=== PATIENT | female | born 1980 | race Caucasian/White ===

== ENCOUNTER → 2016-10-31 | Outpatient (CLI) | payer OTHER ==
[~2016-10-31] MED LIST: MULT-506 PO
[2016-10-31 09:36] LABS: BASO % 0.3 %; BASO ABS # 0.02 K/uL (0-0.2); COMPLETE YES; EOS % 1.3 %; HEMATOCRIT 40.8 % (37-47); IG% 0.1 %; LYMPH % 21.3 %; LYMPH ABS # 1.53 K/uL (1.2-3.4); MEAN CELL VOLUME 90.3 fL (80-100); MEAN CORPUSCULAR HEMOGLOBIN 30.8 pg (25-34); MEAN CORPUSCULAR HGB CONC 34.1 g/dl (32-36); PLATELET COUNT 223 K/uL (130-400); RED BLOOD COUNT 4.52 M/uL (4.2-5.4); WHITE BLOOD COUNT 7.18 K/uL (4.8-10.8)
[2016-10-31 09:49] LABS: BLOOD UREA NITROGEN 13 mg/dl (7-18); GLUCOSE 102 mg/dl (70-99)
[2016-10-31 09:50] LABS: ALT/SGPT 30 U/L (12-78); AST/SGOT 17 U/L (15-37); BUN/CREATININE RATIO 14.1 (10-20); CALCIUM 8.6 mg/dl (8.5-10.1); CARBON DIOXIDE 29 mmol/L (21-32); CHLORIDE 107 mmol/L (98-107); POTASSIUM 4.2 mmol/L (3.5-5.1); SODIUM 139 mmol/L (136-145)
[2016-10-31 10:00] LABS: ALKALINE PHOSPHATASE 41 U/L (45-117); CHOLESTEROL 140 mg/dl (0-200); CHOLESTEROL/HDL RATIO 4.4; HDL CHOLESTEROL 32 mg/dl; LDL CHOLESTEROL CALCULATED 73 mg/dl; TRIGLYCERIDES 176 mg/dl (0-150); VERY LOW DENSITY LIPOPROT CALC 35 mg/dl
[2016-11-03 17:19] LABS: 18KDIGG BAND NONREACTIVE (NONREACTIVE); 23KDIGG BAND NONREACTIVE (NONREACTIVE); 23KDIGM BAND REACTIVE (NONREACTIVE); 28KDIGG BAND NONREACTIVE (NONREACTIVE); 30KDIGG BAND NONREACTIVE (NONREACTIVE); 39KDIGG BAND NONREACTIVE (NONREACTIVE); 39KDIGM BAND NONREACTIVE (NONREACTIVE); 41KDIGG BAND REACTIVE (NONREACTIVE); 41KDIGM BAND NONREACTIVE (NONREACTIVE); 45KDIGG BAND NONREACTIVE (NONREACTIVE); 58KDIGG BAND REACTIVE (NONREACTIVE); 66KDIGG BAND NONREACTIVE (NONREACTIVE); 93KDIGG BAND NONREACTIVE (NONREACTIVE)
== END | disposition home or self-care (01) ==
LOC: C.LAB 07:03
PROVIDERS: ATTEND Physician Assistant
DX: Z13.220 Encounter for screening for lipoid disorders (principal); R53.83 Other fatigue

== ENCOUNTER 2019-04-18 16:18 | Observation (INO) ==
[2019-04-18 16:55] LABS: Basophils # (auto) 0.03 K/uL (0-0.2); Basophils % (auto) 0.3 %; Eosinophils # (auto) 0.15 K/uL (0-0.5); Eosinophils % (auto) 1.5 %; Hematocrit (blood only) 41.9 % (37-47); Hemoglobin 14.2 g/dL (12.0-16.0); Immature Granulocytes # (auto) 0.04 K/uL (0.00-0.02); Immature Granulocytes % (auto) 0.4 %; Lymphocytes # (auto) 2.37 K/uL (1.2-3.4); Lymphocytes % (auto) 23.7 %; Mean Corpuscular Hemoglobin 30.3 pg (25-34); Mean Corpuscular Hgb Conc 33.9 g/dL (32-36); Mean Corpuscular Volume 89.5 fL (80-100); Mean Platelet Volume 10.2 fL (7.4-10.4); Monocytes # (auto) 0.71 K/uL (0.11-0.59); Monocytes % (auto) 7.1 %; Neutrophils # (auto) 6.68 K/uL (1.4-6.5); Platelet Count 195 K/uL (130-400); RDW Coefficient of Variation 12.6 % (11.5-14.5); RDW Standard Deviation 40.6 fL (36.4-46.3); Red Blood Count 4.68 M/uL (4.2-5.4); White Blood Count 9.98 K/uL (4.8-10.8)
[2019-04-18 17:16] LABS: Albumin Level 4.1 gm/dl (3.4-5.0); BUN Creatinine Ratio 15.9 (10-20); Calcium 9.3 mg/dl (8.5-10.1); Creatinine Clr Calc Pharmacy 105.2 ml/min; Est GFR (African American) 82.8; Est GFR (Non-African American) 71.4; Potassium 3.5 mmol/L (3.5-5.1)
[2019-04-18 17:19] LABS: Albumin Globulin Ratio 1.1 (0.9-2); Bilirubin,Total 0.3 mg/dl (0.2-1); Globulin 3.6 gm/dl (2.5-4.0); Total Protein 7.7 gm/dl (6.4-8.2)
--- NOTE | 2019-04-18 17:30 | Ultrasound Report ---
ULTRASOUND LEFT LOWER EXTREMITY VENOUS CLINICAL HISTORY: Left calf pain. COMPARISON STUDY: No priors. TECHNIQUE: Real-time, grayscale, and color Doppler sonography of the deep veins of the left lower ext remity was performed from the inguinal crease to the calf. Compression and augmentation were utilized . FINDINGS: There is occlusive deep venous thrombosis identified in the left popliteal vein. This exten ds into the calf within the posterior tibial and peroneal veins. The common femoral and superficial f emoral veins are patent and normally compressible. The greater saphenous vein and the profunda femori s vein at the junction with the common femoral vein are clear. IMPRESSION: There is occlusive deep venous thrombosis in the left popliteal vein extending into the c assisted as detailed above. ACT 112: Negative or not required by law. Electronically signed by: Mike Rudd M.D. 04/18/2019 5:28 PM
[2019-04-18 17:34] LABS: D Dimer 12000 ug/L FEU (0-500)
[2019-04-18] MEDS ORDERED: OPTIRAY 320 125ml IV PRN (18:08)
--- NOTE | 2019-04-18 18:19 | CT Scan Report ---
CT ANGIOGRAM OF THE CHEST CLINICAL HISTORY: Dyspnea. COMPARISON STUDY: No priors. TECHNIQUE: Following the IV administration of 119 cc of Optiray 320, CT angiogram of the chest was pe rformed from the upper abdomen to the thoracic inlet utilizing the pulmonary embolus protocol. Images are reviewed in the axial, sagittal, and coronal planes. 3-D MIPS images are created and assessed. I V contrast was administered without complication. A dose lowering technique was utilized adhering to the principles of ALARA. CT DOSE: 928.19 mGy.cm FINDINGS: Thyroid: Imaged portions of the thyroid gland are normal in size and attenuation. Thoracic aorta: The thoracic aorta is normal in caliber and demonstrates standard 3-vessel arch anato my. No dissection is seen. Pulmonary vasculature: The pulmonary trunk is normal in caliber. There are filling defects within the right middle and right lower lobe pulmonary arteries extending into segmental and subsegmental branc hes consistent with pulmonary emboli. Segmental and subsegmental pulmonary emboli are also seen withi n branches of the right upper lobe pulmonary artery. There are pulmonary emboli within the left upper and left lower lobe pulmonary arteries which also extend into segmental and subsegmental branches. Heart: The heart is normal in size and without pericardial effusion. Lungs and pleural spaces: The lungs and pleural spaces are clear. The trachea and central airways are patent. Mediastinum: There is no mediastinal lymphadenopathy. Johana: Clear. Axillae: There is no axillary lymphadenopathy. Upper abdomen: Cholecystectomy clips are noted. A 2.3 cm left adrenal nodule meets CT criteria for a fat-containing adenoma. Skeletal structures: No lytic or blastic bony lesions are seen. IMPRESSION: 1. Extensive bilateral pulmonary emboli as above. 2. The lungs are clear. ACT 112: Negative or not required by law. Electronically signed by: Mike Rudd M.D. 04/18/2019 6:18 PM
[2019-04-18] MEDS ORDERED: HEPARIN SODIUM/DEXTROSE 25,000 UNITS/500 ML BAG IV SCH (18:30)
[2019-04-18 18:41] LABS: Partial Thromboplastin Time 26.2 Seconds (21.0-31.0); Prothrombin Time 10.3 Seconds (9.0-12.0)
[2019-04-18] MEDS ORDERED: Heparin BOLUS **ED Use Only IV STA (18:50)
[2019-04-18] MEDS ORDERED: HEPARIN SOD 5,000 UNIT/0.5 ML VIAL ONE (19:02)
--- NOTE | 2019-04-18 19:04 | History & Physical Report ---
Date of Service April 18, 2019 Assessment & Plan (1) Bilateral pulmonary embolism: Admit to PCU on telemetry for unprovoked PE. and DVT. Vital signs every 4 hours. TTE pending. Started and continued heparin drip with bolus. Plan to stop heparin drip tomorrow and start apixaban 10 mg p.o. twice daily for 7 days and continue with 5 mg p.o. twice daily. Once when we receive the results of coagulation studies that were sent to the outside lab, we will be able to determine how long patient needs to stay stay on anticoagulation. We will consult hematology oncology to determine the duration of anticoagulation therapy. DVT prophylaxis heparin drip Full code Present on Admission?: Yes (2) Acute deep vein thrombosis (DVT) of left lower extremity: As the above Present on Admission?: Yes (3) Depression: Continue escitalopram 10 mg p.o. daily Present on Admission?: Yes (4) Hereditary benign telangiectasia: Stable. Patient periodically takes Icatibant. Present on Admission?: Yes (5) Morbid obesity: BMI of 51.6 kg/m . Patient advised to try to lose weight with weight loss program,exercises, and proper diet. Present on Admission?: Yes History of Present Illness Chief Complaint: Shortness of breath Primary Care Provider: Sandra Stahl PA-C The patient is a 38 years old female with past medical history of of hereditary telangiectasia, rosacea and depression who presents to the emergency room with a complaint of pain in her left calf for several weeks. Patient said that pain in her left lower extremity started first at the calf and then it was moving forward cover her thigh. It is located at the mid calf. Patient also noted shortness of breath for the past several weeks. Patient is otherwise healthy. Periodically she takes Icatibant for hereditary telangiectasia. Patient said that her mother had also DVT but that was contributed to her being post operatively. Patient denies recent long flight, smoking, oral contraceptive pills, prolonged sitting, or immobilization. Her only risk factor at this point is that she is overweight with BMI of 51.6 kg. Patient denies fever, chills, chest pain, abdominal pain, frequency, urgency, syncope or near syncope. Labs are reviewed: WBC is 9.98, hemoglobin 14.2, hematocrit 41.9, platelets 195, d- dimer 12,000, PT 10.3, INR 1, APTT 26.2, LA PTT pending, protein C pending, protein S activity pending, Antithrombin 3 activity pending, factor V Leiden mutant pending. Sodium 137, potassium 3.5, chloride 103, carbon dioxide 29, anion gap 5, BUN 16, creatinine 1, GFR 71.4, glucose 94, calcium 9.3, total bilirubin 0.3, AST 18, ALT 29, alkaline phosphatase 51, total protein 7.7, albumin 4.1, globulin 3.6, homocystine pending, TSH 3.55, beta-2 GPI immunoglobulins are pending IgG IgA and IgM, anticardiolipin IgG antibody IgA and IgM also pending. Been gene mutant pending. Venous Doppler shows: There is occlusive deep Raynaud's thrombosis in the left popliteal vein extended into the calf. CT angiogram chest shows extensive bilateral pulmonary emboli. Decision was made to admit patient to PCU on telemetry for further evaluation and treatment of extensive pulmonary embolism and left lower extremity DVT. Allergies Allergy/AdvReac Type Severity Reaction Status Date / Time Cephalosporins Allergy Unknown VOMITING/RA Verified 04/18/19 18:42 SH NSAIDS (Non-Steroidal Allergy DOES NOT Verified 04/18/19 18:42 Anti-Inflamma TAKE DUE TO BLOOD DISORDER cephalexin [From Keflex] AdvReac Severe PROJECTILE Verified 04/18/19 18:42 VOMITING codeine AdvReac Severe VOMITING/SO Verified 04/18/19 18:43 B Peanuts Allergy Unknown Uncoded 04/18/19 18:42 Home Medications Home Medications Medication Instructions Recorded Confirmed Type icatibant 30 mg/3 mL subcutaneous 30 mg SQ .COMPLEX 11/28/18 04/18/19 History syringe escitalopram oxalate 10 mg tablet 10 mg PO DAILY #30 tab 02/19/19 04/18/19 Rx acetaminophen [Tylenol Extra 1,000 mg PO Q6H PRN 04/18/19 04/18/19 History Strength] minocycline 100 mg PO BID PRN 04/18/19 04/18/19 History Past Med/Surg History Medical History Depression Hereditary angioedema Surgical History H/O knee surgery History of cholecystectomy History of tonsillectomy Family History Grandfather Asthma Hereditary angioedema Mother Hereditary angioedema Sister Hereditary angioedema Uncle Hereditary angioedema Social History Preferred Language: Polish Feels Safe at Home: Yes Smoking Status: Never smoker Review of Systems Review of Systems: All systems reviewed & are unremarkable except as noted in HPI & below Physical Exam Constitutional: WD/WN, vitals as above well developed and + morbidly obese Eyes: PERRL, conjunctivae normal, anicteric sclerae ENMT: external ear and nose normal, oropharynx normal Respiratory: normal respiratory effort Auscultation: + diminished lung sounds Cardiovascular: RRR, no murmur, no edema Gastrointestinal (Abdomen): normal bowel sounds, soft, nontender, no hepatosplenomegaly Musculoskeletal: no cyanosis or clubbing, extremities motor strength 5/5 Skin: no rashes, warm and dry Neurologic: patellar DTR's 2+ bilat, sensation intact Psychiatric: A+Ox3, euthymic affect Lymphatic: no cervical or axillary lymphadenopathy Results & Data Vital Signs (Past 12 Hours) Vital Signs Temp Pulse Resp BP Pulse Ox 04/18/19 18:01 64 20 98 04/18/19 18:00 65 15 153/88 H 99 04/18/19 17:49 71 20 99 04/18/19 17:32 73 18 138/84 99 04/18/19 16:21 36.9 C 88 18 162/88 H 100 Code Status & VTE Plan Code Status Full code VTE Prophylaxis Plan VTE Prophylaxis will be ordered: Yes PG Care Time/CCT Total # of Minutes Spent Total Time Spent with Patient: Total time spent is greater than 50% in coordination of care (as documented) at patient's floor/unit and/or counseling patient: Coding Level of Care Code 33485 Initial Inpt Care Lvl 3 Diagnoses Bilateral pulmonary embolism I26.99 Acute deep vein thrombosis (DVT) of left lower extremity I82.402 Affected thrombotic vein of extremity: unspecified vein of extremity Depression F32.9 Hereditary benign telangiectasia I78.0 Morbid obesity E66.01 (1) Acute deep vein thrombosis (DVT) of left lower extremity Affected thrombotic vein of extremity: unspecified vein of extremity Qualified Code(s): I82.402 - Acute embolism and thrombosis of unspecified deep veins of left lower extremity
[2019-04-18 19:32] LABS: Thyroid Stimulating Hormone 3.55 uIu/ml (0.300-4.500)
[2019-04-18] MEDS ORDERED: MAGNESIUM HYDROXIDE SUSP 30 ML UDC PO PRN (20:53)
[2019-04-18] MEDS ORDERED: POLYETHYLENE (MIRALAX) 17 GM PACK PO PRN (20:53)
[2019-04-18] MEDS ORDERED: ONDANSETRON INJ 2 MG/ML 2 ML VIAL IV PRN (20:53)
[2019-04-18] MEDS ORDERED: ACETAMINOPHEN 325 MG TAB PO PRN (20:53)
[2019-04-18] MEDS ORDERED: ALUMINUM/MAGNESIUM SUSP 30 ML UDC PO PRN (20:53)
[2019-04-18] MEDS: OXYCODONE/ACETAMINOPHEN 5mg/325mg TAB PO PRN (21:10)
--- NOTE | 2019-04-19 00:21 | Emergency Department Note ---
Entered by Nasreen Blanc acting as a scribe for ED Provider Note CHIEF COMPLAINT: right calf pain HISTORY OF PRESENT ILLNESS: The patient is a 38 year old female who presents to the Emergency Room with complaints of worsening right calf pain beginning one week ago. She states the pain is worse with exertion and worse in the morning after waking up. She notes the pain as a 5/10 while sitting, but much higher while moving around. She denies pain in her left calf. The patient reports shortness of breath with exertion and talking. She notes nausea this morning and night sweats. She denies chest discomfort with deep breaths. The patient denies a fall, injury, and pain in her foot, thigh, or hip. She denies similar symptoms previously. She denies long car or plane travel, heavy lifting, and sitting for extended periods.Pt den ies LOC, headache, fevers, chills, diaphoresis, visual changes, neck pain, chest pain, vomiting, abdominal pain, back pain, melena, hematochezia, urinary symptoms, numbness, weakness, lymphadenopathy, rash, or other complaints. The patient reports she is on Lexapro. REVIEW OF SYSTEMS: See HPI for pertinent positives and negatives. A total of ten systems were reviewed and were otherwise negative. PMHx/PSHx: Hereditary angioedema SOCIAL HISTORY: Patient lives at home. Patient denies smoking. She reports occasional drinking. FAMILY HISTORY: Blood clots (mother) PHYSICAL EXAM: GENERAL: Awake, alert, mildly uncomfortable-appearing, in no distress HENT: Normocephalic, atraumatic. Oropharynx unremarkable. EYES: PERRL. Normal conjunctiva. Sclera non-icteric. NECK: Inspection normal. Non-tender. Supple. No nuchal rigidity. FROM. No masses. RESPIRATORY: Clear to auscultation. No wheezes. No rales. Normal respiratory effort. CARDIAC: Normal rate. Normal rhythm. No murmurs. No rubs. Extremities warm and well perfused. Pulses equal. No JVD. GI: Soft, non-distended. No tenderness to palpation. No rebound or guarding. No masses. RECTAL: Deferred. MUSCULOSKELETAL: Atraumatic. Chest examination reveals no tenderness. The back is symmetrical on inspection without obvious abnormality. There is no CVA tenderness to palpation. No joint edema. LOWER EXTREMITIES: Calves are equal size bilaterally and non-tender. No edema. No discoloration. Left calf tenderness. NEURO: Normal sensorium. No sensory or motor deficits noted. SKIN: No rash or jaundice noted. EMERGENCY DEPARTMENT COURSE: 163: Past medical records reviewed. The patient was evaluated in room D03B, and a complete history and physical examination were performed. 1744: I updated the patient on my findings concerning her lab results. 1821: I updated the patient on my findings concerning her imaging. 1839: Upon reevaluation, I discussed findings and results with the patient. She verbalized agreement of the treatment plan. I spoke with Dr. Bahena of the [facility] Hospitalist Service. The patient will be evaluated for further management and care. CC: 35 min I have personally spent 35 minutes of critical care time in the direct management of this patient. This includes bedside care, interpretation of diagnostic studies, and testing, discussion with consultants, patient, and family members, and other required patient management activities. This 35 minutes is in excess of all separately billable procedures. MEDICAL DECISION MAKING: Triage Nursing notes reviewed and agree them. The patient's history was concerning for swelling and pain in the leg. Differential diagnosis: Etiologies such as DVT, joint effusion, infection, trauma, muscular, lymphedema, idiopathic, CHF, as well as others were entertained.. Physical examination: The physical examination revealed no signs of infection. Neurovascularly intact. ER treatment provided: IV heparin drip Cardiac monitoring On reassessment the patient felt better. Diagnostics interpreted by me: The labs revealed an unremarkable CBC and chemistry panel. Coags normal. The patient's d-dimer was markedly elevated. Imaging studies: Ultrasound imaging of the left leg was positive for occlusive DVT. CT imaging of the chest revealed bilateral pulmonary emboli. The patient has bilateral pulmonary emboli and a DVT. She was started on IV heparin. Hypercoagulability labs were ordered in order to help with the inpatient work-up. She will need further management in the hospital. Consultation: A consultation was placed with the hospitalist. The case was discussed and diagnostics were reviewed. The patient was evaluated in the ER for further treatment. IMPRESSION: bilateral pulmonary emboli, left leg DVT PLAN: Evaluated by Hospitalist The scribe's documentation has been prepared under my direction and personally reviewed by me in its entirety. I confirm that the note above accurately reflects all work, treatment, procedures, and medical decision making performed by me. Impression & Plan Bilateral pulmonary embolism, Acute deep vein thrombosis (DVT) of left lower extremity Past Med/Surg History Medical History Depression Hereditary angioedema Surgical History H/O knee surgery History of cholecystectomy History of tonsillectomy Family History Grandfather Asthma Hereditary angioedema Mother Hereditary angioedema Sister Hereditary angioedema Uncle Hereditary angioedema Social History Preferred Language: Trinidadian Communication Ability: Effective Features Reporter Required: No Beliefs That Will Affect Care: None Current Living Situation: Spouse Feels Safe at Home: Yes Smoking Status: Unknown if ever smoked Hx Alcohol Use: No Hx Substance Use: No Results & Data Vital Signs Vital Signs - 24 hr 04/18/19 16:21 04/18/19 17:32 04/18/19 17:49 Temperature 36.9 C Temperature Source Oral Pulse Rate 88 73 71 Pulse Rate from SpO2 Sensor 73 70 Respiratory Rate 18 18 20 Blood Pressure 162/88 H 138/84 Blood Pressure Mean 112 94 Pulse Oximetry 100 99 99 Oxygen Delivery Method Room Air Sepsis Recent Fever Within 48 Hours No Sepsis New/Unexplained Change in Mental Status No Sepsis Action Taken by Nursing No Action Required 04/18/19 18:00 04/18/19 18:01 04/18/19 18:30 Temperature Temperature Source Pulse Rate 65 64 Pulse Rate from SpO2 Sensor 66 65 71 Respiratory Rate 15 20 Blood Pressure 153/88 H 138/104 H Blood Pressure Mean 98 110 Pulse Oximetry 99 98 100 Oxygen Delivery Method Sepsis Recent Fever Within 48 Hours Sepsis New/Unexplained Change in Mental Status Sepsis Action Taken by Nursing 04/18/19 18:31 04/18/19 19:00 Temperature Temperature Source Pulse Rate Pulse Rate from SpO2 Sensor 73 Respiratory Rate Blood Pressure 137/81 Blood Pressure Mean 103 Pulse Oximetry 99 Oxygen Delivery Method Sepsis Recent Fever Within 48 Hours Sepsis New/Unexplained Change in Mental Status Sepsis Action Taken by Jail Medications Current Medication List: was personally reviewed by me Laboratory Data Attestation: I reviewed the patient's lab results. Result diagrams: 04/18/19 16:47 04/18/19 16:47 Lab Results 04/18/19 04/18/19 04/18/19 Range/Units 16:47 16:47 16:47 WBC 9.98 (4.8-10.8) K/uL RBC 4.68 (4.2-5.4) M/uL Hgb 14.2 (12.0-16.0) g/dL Hct 41.9 (37-47) % MCV 89.5 (80-100) fL MCH 30.3 (25-34) pg MCHC 33.9 (32-36) g/dL RDW Std Deviation 40.6 (36.4-46.3) fL RDW Coeff of Jose 12.6 (11.5-14.5) % Plt Count 195 (130-400) K/uL MPV 10.2 (7.4-10.4) fL Immature Gran % (Auto) 0.4 % Neut % (Auto) 67.0 % Lymph % (Auto) 23.7 % Gage % (Auto) 7.1 % Eos % (Auto) 1.5 % Baso % (Auto) 0.3 % Immature Gran # (Auto) 0.04 H (0.00-0.02) K/uL Neut # (Auto) 6.68 H (1.4-6.5) K/uL Lymph # (Auto) 2.37 (1.2-3.4) K/uL Gage # (Auto) 0.71 H (0.11-0.59) K/uL Eos # (Auto) 0.15 (0-0.5) K/uL Baso # (Auto) 0.03 (0-0.2) K/uL PT (9.0-12.0) Seconds INR (0.9-1.1) APTT (21.0-31.0) Seconds PTT Ratio D-Dimer 12627 H* (0-500) ug/L FEU Sodium 137 (136-145) mmol/L Potassium 3.5 (3.5-5.1) mmol/L Chloride 103 (98-107) mmol/L Carbon Dioxide 29 (21-32) mmol/L Anion Gap 5.0 (3-11) BUN 16 (7-18) mg/dl Creatinine 1.00 (0.6-1.2) mg/dl Est Cr Clr Drug Dosing 105.2 ml/min Est GFR ( Amer) 82.8 Est GFR (Non-Af Amer) 71.4 BUN/Creatinine Ratio 15.9 (10-20) Glucose 94 (70-99) mg/dl Calcium 9.3 (8.5-10.1) mg/dl Total Bilirubin 0.3 (0.2-1) mg/dl AST 18 (15-37) U/L ALT 29 (12-78) U/L Alkaline Phosphatase 51 (45-117) U/L Total Protein 7.7 (6.4-8.2) gm/dl Albumin 4.1 (3.4-5.0) gm/dl Globulin 3.6 (2.5-4.0) gm/dl Albumin/Globulin Ratio 1.1 (0.9-2) TSH 3.550 (0.300-4.500) uIu/ml 04/18/19 Range/Units 16:47 WBC (4.8-10.8) K/uL RBC (4.2-5.4) M/uL Hgb (12.0-16.0) g/dL Hct (37-47) % MCV (80-100) fL MCH (25-34) pg MCHC (32-36) g/dL RDW Std Deviation (36.4-46.3) fL RDW Coeff of Jose (11.5-14.5) % Plt Count (130-400) K/uL MPV (7.4-10.4) fL Immature Gran % (Auto) % Neut % (Auto) % Lymph % (Auto) % Gage % (Auto) % Eos % (Auto) % Baso % (Auto) % Immature Gran # (Auto) (0.00-0.02) K/uL Neut # (Auto) (1.4-6.5) K/uL Lymph # (Auto) (1.2-3.4) K/uL Gage # (Auto) (0.11-0.59) K/uL Eos # (Auto) (0-0.5) K/uL Baso # (Auto) (0-0.2) K/uL PT 10.3 (9.0-12.0) Seconds INR 1.0 (0.9-1.1) APTT 26.2 (21.0-31.0) Seconds PTT Ratio 1.0 D-Dimer (0-500) ug/L FEU Sodium (136-145) mmol/L Potassium (3.5-5.1) mmol/L Chloride (98-107) mmol/L Carbon Dioxide (21-32) mmol/L Anion Gap (3-11) BUN (7-18) mg/dl Creatinine (0.6-1.2) mg/dl Est Cr Clr Drug Dosing ml/min Est GFR ( Amer) Est GFR (Non-Af Amer) BUN/Creatinine Ratio (10-20) Glucose (70-99) mg/dl Calcium (8.5-10.1) mg/dl Total Bilirubin (0.2-1) mg/dl AST (15-37) U/L ALT (12-78) U/L Alkaline Phosphatase (45-117) U/L Total Protein (6.4-8.2) gm/dl Albumin (3.4-5.0) gm/dl Globulin (2.5-4.0) gm/dl Albumin/Globulin Ratio (0.9-2) TSH (0.300-4.500) uIu/ml Administered Medications Heparin Sodium/Dextrose (Heparin Sodium/Dextrose) 25,000 units in 500 mls @ 31 mls/hr IV .[id number] [facility]; Protocol Stop: 05/18/19 18:29 Last Admin: 04/18/19 19:08 Dose: 1,550 units/hr, 31 mls/hr Documented by: [id number] Cosigned by: [id number] Oxycodone/Acetaminophen (Percocet 5mg/325mg) 1 tab PO Q4H PRN PRN Reason: Pain Stop: 05/02/19 20:52 Last Admin: 04/18/19 21:10 Dose: 1 tab Documented by: [id number] Discontinued Medications Heparin Sodium (Porcine) (Heparin Iv Bolus) 7,000 units IV NOW STA Stop: 04/18/19 18:51 Last Admin: 04/18/19 19:09 Dose: Not Given Documented by: [id number] Heparin Sodium (Porcine) (Heparin Sodium (Porcine)) Confirm Administered Dose 5,000 units .ROUTE .STK-MED ONE Stop: 04/18/19 19:03 Last Admin: 04/18/19 19:08 Dose: 5,000 units Documented by: [id number] Cosigned by: [id number] Heparin Sodium/Dextrose () 1 ea N/A NOW STA; Protocol Stop: 04/18/19 18:21 Last Admin: 04/18/19 19:09 Dose: Not Given Documented by: [id number] Ioversol (Optiray 320 125ml) 119 ml IV ONCE PRN PRN Reason: Interaction Checking Stop: 04/22/19 18:07 Last Admin: 04/18/19 18:08 Dose: 119 ml Documented by: [id number] Imaging Data Radiologist's Impression: Radiology results as stated below per my review and the radiologist's interpretation: ULTRASOUND LEFT LOWER EXTREMITY VENOUS CLINICAL HISTORY: Left calf pain. COMPARISON STUDY: No priors. TECHNIQUE: Real-time, grayscale, and color Doppler sonography of the deep veins of the left lower extremity was performed from the inguinal crease to the calf. Compression and augmentation were utilized. FINDINGS: There is occlusive deep venous thrombosis identified in the left popliteal vein. This extends into the calf within the posterior tibial and peroneal veins. The common femoral and superficial femoral veins are patent and normally compressible. The greater saphenous vein and the profunda femoris vein at the junction with the common femoral vein are clear. IMPRESSION: There is occlusive deep venous thrombosis in the left popliteal vein extending into the calf as detailed above. ACT 112: Negative or not required by law. Electronically signed by: Mike Rudd M.D. 04/18/2019 5:[address] ANGIOGRAM OF THE CHEST CLINICAL HISTORY: Dyspnea. COMPARISON STUDY: No priors. TECHNIQUE: Following the IV administration of 119 cc of Optiray 320, CT angiogram of the chest was performed from the upper abdomen to the thoracic inlet utilizing the pulmonary embolus protocol. Images are reviewed in the axial, sagittal, and coronal planes. 3-D MIPS images are created and assessed. IV contrast was administered without complication. A dose lowering technique was utilized adhering to the principles of ALARA. CT DOSE: 928.19 mGy.cm FINDINGS: Thyroid: Imaged portions of the thyroid gland are normal in size and attenuation. Thoracic aorta: The thoracic aorta is normal in caliber and demonstrates standard 3-vessel arch anatomy. No dissection is seen. Pulmonary vasculature: The pulmonary trunk is normal in caliber. There are filling defects within the right middle and right lower lobe pulmonary arteries extending into segmental and subsegmental branches consistent with pulmonary emboli. Segmental and subsegmental pulmonary emboli are also seen within branches of the right upper lobe pulmonary artery. There are pulmonary emboli w ithin the left upper and left lower lobe pulmonary arteries which also extend into segmental and subsegmental branches. Heart: The heart is normal in size and without pericardial effusion. Lungs and pleural spaces: The lungs and pleural spaces are clear. The trachea and central airways are patent. Mediastinum: There is no mediastinal lymphadenopathy. Johana: Clear. Axillae: There is no axillary lymphadenopathy. Upper abdomen: Cholecystectomy clips are noted. A 2.3 cm left adrenal nodule meets CT criteria for a fat-containing adenoma. Skeletal structures: No lytic or blastic bony lesions are seen. IMPRESSION: 1. Extensive bilateral pulmonary emboli as above. 2. The lungs are clear. ACT 112: Negative or not required by law. Electronically signed by: Mike Rudd M.D. 04/18/2019 6:18 PM Blood Pressure Blood Pressure Findings: Elevated blood pressure Blood Pressure Disposition: further management by hospitalist Discharge Plan Visit Data *Final* Discharge Date/Time: 04/18/19 20:27 Chief Complaint: Calf Pain Stated Complaint: EXTREME LEFT CLAF PAIN ED Provider: Srinivasa Arzate Discharge Problem: Bilateral pulmonary embolism, Acute deep vein thrombosis (DVT) of left lower extremity Patient Disposition: Admitted As Inpatient Discharge Instructions Interventions: ED Discharge Assessment Last Done: 04/18/19 20:27 Discharge Problem: Acute deep vein thrombosis (DVT) of left lower extremity Qualifiers: Affected thrombotic vein of extremity: unspecified vein of extremity Qualified Code(s): I82.402 - Acute embolism and thrombosis of unspecified deep veins of left lower extremity The scribe's documentation has been prepared under my direction and personally reviewed by me in its entirety. I confirm that the note above accurately reflects all work, treatment, procedures, and medical decision making performed by me.
[2019-04-19 01:19] LABS: Basophils # (auto) 0.04 K/uL (0-0.2); Basophils % (auto) 0.4 %; Eosinophils # (auto) 0.26 K/uL (0-0.5); Eosinophils % (auto) 2.9 %; Hemoglobin 12.7 g/dL (12.0-16.0); Immature Granulocytes # (auto) 0.04 K/uL (0.00-0.02); Immature Granulocytes % (auto) 0.4 %; Lymphocytes # (auto) 2.75 K/uL (1.2-3.4); Lymphocytes % (auto) 30.5 %; Mean Corpuscular Hemoglobin 30.7 pg (25-34); Mean Corpuscular Hgb Conc 34.3 g/dL (32-36); Mean Corpuscular Volume 89.4 fL (80-100); Mean Platelet Volume 10.8 fL (7.4-10.4); Monocytes % (auto) 8.9 %; Neutrophils # (auto) 5.13 K/uL (1.4-6.5); Neutrophils % (auto) 56.9 %; Platelet Count 178 K/uL (130-400); RDW Coefficient of Variation 12.6 % (11.5-14.5); RDW Standard Deviation 40.4 fL (36.4-46.3); Red Blood Count 4.14 M/uL (4.2-5.4); White Blood Count 9.02 K/uL (4.8-10.8)
[2019-04-19 01:43] LABS: Albumin Level 3.1 gm/dl (3.4-5.0); BUN Creatinine Ratio 16.5 (10-20); Calcium 8.3 mg/dl (8.5-10.1); Creatinine Clr Calc Pharmacy 112.4 ml/min; Est GFR (African American) 90.4; Potassium 3.7 mmol/L (3.5-5.1)
[2019-04-19 01:46] LABS: Albumin Globulin Ratio 0.9 (0.9-2); Bilirubin,Total 0.3 mg/dl (0.2-1); Globulin 3.4 gm/dl (2.5-4.0); Total Protein 6.5 gm/dl (6.4-8.2)
[2019-04-19 01:47] LABS: Partial Thromboplastin Ratio 1.9; Prothrombin Time 10.6 Seconds (9.0-12.0)
[2019-04-19 02:01] LABS: Partial Thromboplastin Time 50.5 Seconds (21.0-31.0)
[2019-04-19] MEDS: OXYCODONE/ACETAMINOPHEN 5mg/325mg TAB PO PRN (03:44)
[2019-04-19 06:21] LABS: Estimated Average Glucose 111 mg/dl; Hemoglobin A1C 5.5 % (4.5-5.6)
[2019-04-19] MEDS ORDERED: PERFLUTREN LIPID MICROSPHERE (DEFINITY) IV ONE (06:59)
[2019-04-19] MEDS ORDERED: ESCITALOPRAM OXALATE 10 MG TAB PO SCH (09:00)
[2019-04-19] MEDS ORDERED: APIXABAN 5 MG TABLET PO SCH (09:00)
[2019-04-19] MEDS ORDERED: IOVERSOL 100ml IV PRN (12:39)
--- NOTE | 2019-04-19 12:51 | CT Scan Report ---
ABDOMEN AND PELVIS CT WITH IV AND ORAL CONTRAST CT DOSE: 1704.62 mGy.cm HISTORY: Acute generalized abdominal pain with pulmonary emboli pe, constitutional symptoms TECHNIQUE: Multiaxial CT images of the abdomen and pelvis were performed following the IV administrat ion of 94 cc of Optiray 320 and oral contrast. A dose lowering technique was utilized adhering to e principles of ALARA. COMPARISON STUDY: CTA of the chest 04/18/2019, right upper quadrant abdominal ultrasound 09/04/2009 FINDINGS: Clear lung bases. Pulmonary emboli redemonstrated. No pneumatosis or pneumoperitoneum. Imaged inferio r cardiac chambers appear unremarkable. Spleen, pancreas, liver and right adrenal gland are unremarka ble. 2.3 x 1.8 cm lesion of the left adrenal gland with soft tissue density is nonspecific. Cholecyst ectomy. No significant biliary ductal dilation identified. The kidneys and ureters are unremarkable. Partial distention of the urinary bladder. Uterus and adnexa are unremarkable. Aorta and IVC are with in normal limits. There is no adenopathy. There is mild nonspecific wall thickening of the gastric antrum/pylorus which may be secondary to par tial distention. There is no bowel obstruction or bowel wall thickening identified. No ascites or mes enteric inflammation. Terminal ileum is unremarkable. The appendix is not definitively seen. No secon mary signs of acute appendicitis. No ascites or mesenteric inflammation. Soft tissues are unremarkabl e. Spondylitic spurring and facet arthrosis of the spine. Degenerative changes of the SI joints. Post erior disc osteophyte complex formation with mild disc space narrowing at L5-S1. IMPRESSION: 1. No acute intra-abdominal or intrapelvic abnormality identified. 2. No bowel obstruction or bowel wall thickening. 3. Cholecystectomy. 4. Bibasilar pulmonary emboli redemonstrated. ACT 112: Negative or not required by law. The above report was generated using voice recognition software. It may contain grammatical, syntax o r spelling errors. Electronically signed by: Joey Galvan M.D. 04/19/2019 12:49 PM
--- NOTE | 2019-04-19 16:14 | Discharge Summary ---
Date of Service April 19, 2019 Admission HPI Per Admitting Provider The patient is a 38 years old female with past medical history of of hereditary telangiectasia, rosacea and depression who presents to the emergency room with a complaint of pain in her left calf for several weeks. Patient said that pain in her left lower extremity started first at the calf and then it was moving forward cover her thigh. It is located at the mid calf. Patient also noted shortness of breath for the past several weeks. Patient is otherwise healthy. Periodically she takes Icatibant for hereditary telangiectasia. Patient said that her mother had also DVT but that was contributed to her being post operatively. Patient denies recent long flight, smoking, oral contraceptive pills, prolonged sitting, or immobilization. Her only risk factor at this point is that she is overweight with BMI of 51.6 kg. Patient denies fever, chills, chest pain, abdominal pain, frequency, urgency, syncope or near syncope. Labs are reviewed: WBC is 9.98, hemoglobin 14.2, hematocrit 41.9, platelets 195, d-d carol ann 12,000, PT 10.3, INR 1, APTT 26.2, LA PTT pending, protein C pending, protein S activity pending, Antithrombin 3 activity pending, factor V Leiden mutant pending. Sodium 137, potassium 3.5, chloride 103, carbon dioxide 29, anion gap 5, BUN 16, creatinine 1, GFR 71.4, glucose 94, calcium 9.3, total bilirubin 0.3, AST 18, ALT 29, alkaline phosphatase 51, total protein 7.7, albumin 4.1, globulin 3.6, homocystine pending, TSH 3.55, beta-2 GPI immunoglobulins are pending IgG IgA and IgM, anticardiolipin IgG antibody IgA and IgM also pending. Been gene mutant pending. Venous Doppler shows: There is occlusive deep Raynaud's thrombosis in the left popliteal vein extended into the calf. CT angiogram chest shows extensive bilateral pulmonary emboli. Decision was made to admit patient to PCU on telemetry for further evaluation and treatment of extensive pulmonary embolism and left lower extremity DVT. Admission Exam Per Admitting Provider Constitutional: WD/WN, vitals as above well developed and + morbidly obese Eyes: PERRL, conjunctivae normal, anicteric sclerae ENMT: external ear and nose normal, oropharynx normal Respiratory: normal respiratory effort Auscultation: + diminished lung sounds Cardiovascular: RRR, no murmur, no edema Gastrointestinal (Abdomen): normal bowel sounds, soft, nontender, no hepatosplenomegaly Musculoskeletal: no cyanosis or clubbing, extremities motor strength 5/5 Skin: no rashes, warm and dry Neurologic: patellar DTR's 2+ bilat, sensation intact Psychiatric: A+Ox3, euthymic affect Lymphatic: no cervical or axillary lymphadenopathy Principal Diagnosis Pulmonary Emboli Discharge Exam Constitutional WD/WN, vitals as above + obese and cooperative Eyes PERRL, conjunctivae normal, anicteric sclerae ENMT external ear and nose normal, oropharynx normal Neck normal visual inspection and trachea midline Respiratory normal respiratory effort, lungs clear to auscultation Auscultation: no crackles, no rales, no wheezes and no pleural rub Cardiovascular RRR, no murmur, no edema Heart Sounds: normal S1 and normal S2 Extremities: + calf tenderness (left side) Gastrointestinal (Abdomen) normal bowel sounds, soft, nontender, no hepatosplenomegaly Skin no rashes, warm and dry Psychiatric A+Ox3, euthymic affect Discharge Data Allergies Allergy/AdvReac Type Severity Reaction Status Date / Time Cephalosporins Allergy Unknown VOMITING/RA Verified 04/18/19 18:42 SH NSAIDS (Non-Steroidal Allergy DOES NOT Verified 04/18/19 18:42 Anti-Inflamma TAKE DUE TO BLOOD DISORDER peanut Allergy Unknown Verified 04/19/19 08:48 cephalexin [From Keflex] AdvReac Severe PROJECTILE Verified 04/18/19 18:42 VOMITING codeine AdvReac Severe VOMITING/SO Verified 04/18/19 18:43 B Consultations 04/18/19 20:53 Consult Hematology Routine Ordered Studies 04/18/19 16:36 US venous doppler LE LT Stat 04/18/19 17:37 CT angio chest PE protocol Stat 04/19/19 09:41 CT abd pelvis oral and IV con Routine Hospital Course (1) Bilateral pulmonary embolism: Katey is a 38 yo woman with a PMHx of hereditary benign telangiectasia who was admitted to [facility] on 04/18/19 for evaluation of Left calf pain and shortness of breath, found to have a left popliteal deep vein thrombosis and extensive bilateral pulmonary emboli. Chest CTA on admission showed extensive bilateral pulmonary emboli, likely origin is L popliteal DVT. Patient was started on a heparin drip before being transitioned to Apixaban. She was directed to take Apixaban 10mg, BID for 7 days, followed by 5mg, BID for 3-6 months in the setting of an unprovoked DVT. Risk factors were reviewed with patient: she is a non-smoker, not on hormonal therapy, had no prolonged period of immobility. She is sexually active with women only, thus a test was not ordered during hospital stay. Patient reported recent night sweats prior to admission. CT scan of abdomen and pelvis was obtained, which showed no findings concerning for malignancy. She reports a history of a provoked DVT in maternal grandmother. Only + risk factor is morbid obesity. Coagulability panel was ordered during admission, but did not result by the time of discharge. An echocardiogram was also obtained during hospital stay, but final read was not available prior to discharge. Provided recommendations regarding precautions in the setting of future airplane travel, car rides >1hr, and surgeries. She will follow up with Dr. Mcdaniels in hematology as an outpatient. Outpatient items to do: determine duration of prophylactic anticoagulation. follow up on coagulability panel (2) Acute deep vein thrombosis (DVT) of left lower extremity: Patient started on anticoagulation as above. If pain in L calf does not improve within 5 days, she directed to contact Dr. Mcdaniels or her PCP, as she may need consideration of surgical intervention (thrombectomy vs. targeted thrombolytic). (3) Hereditary benign telangiectasia: continue Icatibant (4) Morbid obesity: BMI 51. Patient reports having lost 70 pounds since 2010. Outpatient items to do: discuss lifestyle modifications. If no weight loss is achieved, consider medical vs. surgical weight loss therapy. Total Time Total Time Spent Total Time Spent (In Minutes): >30 Discharge Plan Discharge Items Patient Disposition: Home - Self-Care Reason For Visit: SOB,LEFT CALF PAIN Discharge Diagnosis: Pulmonary Emboli Activity: Resume your previous activity Non-emergency contact: Primary Care Provider Call non-emergency contact if: you have any medication questions Follow-up/Referrals: Sandra Stahl PA-C [Primary Care Provider] - 04/23/19 8:00 am (Please, follow up with Sandra Stahl PA-C on MondayApril 23 at 8:00 am. *If you have any questions, call the office at [phone].) Diet: Regular Addtl Attending Provider Instructions: You were hospitalized at [facility] from 04/18/19-04/19/19 for evaluation of left calf pain and shortness of breath. A cat scan of your chest was obtained which showed multiple blood clots in your lungs, which are known as "pulmonary emboli." A ultrasound of left leg revealed a blood clot in a deep vein behind your left lower leg, likely the source of your calf pain. Both the blood clot in the lung, and those in the lungs are treated with blood thinners. While in the hospital you were treated with heparin, but upon discharge we have advised you to take Elliquis, 10mg, twice daily for 7 days, after which you should take 5mg, twice daily for 3-6 months. Please take two doses per day, 12 hours apart. While you were in the hospital, blood tests were order to see if there is a genetic explanation for why you formed these blood clots. The results did not return before your discharge, but you will be informed of these at your follow up visit. If you will be going on a car or airplane ride >1 hour in duration in the future, please be sure to stand up and walk around for at least 5 minutes to promote blood circulation. A cat scan of your abdomen and pelvis was ordered, which no showed concerning finding. If your calf pain does not improve within the next week, please let your primary care doctor know, as you may need to see a vascular surgeon. Please follow up with your primary care doctor, as well as Dr. Mcdaniels within 1-2 weeks after discharge. Pending Studies at Discharge: No Stand-Alone Forms: My [facility], Smoking Cessation Medications and DC Order Prescriptions: New Eliquis 5 mg Tablet 10 mg PO BID 7 Days Qty: 28 RF: 0 apixaban 5 mg tablet 5 mg PO BID 30 Days Qty: 60 RF: 3 Continued icatibant [Firazyr] 30 mg/3 mL syringe 30 mg SQ .COMPLEX RF: 0 escitalopram oxalate 10 mg tablet 10 mg PO DAILY Qty: 30 RF: 2 acetaminophen [Tylenol Extra Strength] 500 mg Tablet 1,000 mg PO Q6H PRN (Reason: Pain) RF: 0 minocycline 100 mg capsule 100 mg PO BID PRN (Reason: ROSASEA) RF: 0 Discharge Orders: Discharge Order (Routine); Ordered 04/19/19 Ordered By: Aurora Holden Admission Data Admit Date/Time: 04/18/19 19:04 Attending Provider: Ismael Beard Admit Provider: Tiny Bahena Primary Care Provider: Sandra Stahl Other Providers: Ander Mcdaniels ; Tiny Bahena Other Interventions: Discharge Summary Assessment (RN) Last Done: 04/19/19 14:42 Supervising Physician Co-Signing Physician Notes I personally examined the patient and verified all hernandez points of history and exam, discussed case, and agree with decision making with Dr Holden. Feeling okay. Does have a degree of pleuritic pain with breathing, as well as a bit of calf pain with walking, but feels like she would be able to do okay at home. Extensive discussions with patient on PE, pathophysiology, treatment, clinical manifestations, follow through. Answered all questions to the best my ability and to her satisfaction. Vitals noted, in general she is awake and alert pleasant no distress. HEENT normocephalic atraumatic mucous membranes moist. Breathing unlabored no accessory muscle use good effort. Skin shows no rashes no pallor or icterus. No focal neuro deficits. DVT/PEvital stable, stable for home. Pain under reasonable control. Discharged to home on Eliquis 10 mg twice daily for 7 days, 5 mg twice daily thereafter. Ongoing close outpatient follow-up to dictate duration of anticoagulation given this appears to essentially have been an unprovoked VTE. Otherwise as above. Resident Activity Tracking Resident Involvement: Resident Care Provided Care Provided: Adult Hospital Medicine
--- NOTE | 2019-04-19 16:28 | Oncology Consultation ---
Date of Consultation April 19, 2019 Assessment & Plan (1) Bilateral pulmonary embolism: Ms. Tran suffered an extensive DVT/PE that was unprovoked. A hypercoagulable state workup has been sent and is pending. I can see her in the office to follow up on the results and to discuss optimal duration of anticoagulation. She has been experiencing some constitutional symptoms in recent months, like fatigue and night sweats, so I suggested we image her abdomen and pelvis to rule out occult lymphadenopathy. Her scans show no evidence of a lymphoproliferative disorder. She is up-to-date on her other age- appropriate cancer screening at this time. As a result, I doubt that occult malignancy is the cause of her VTE. She is being discharged on Eliquis. I will make arrangements for her to see me in the office in a few weeks. Present on Admission?: Yes History of Present Illness Reason for Consultation: PE/DVT Attending Physician: Ismael Beard, DO History of Present Illness Ms. Tran is a 38 year old woman with a history of hereditary angioedema. She presented with about a week of worsening left leg pain. In the ER, she was found to have an acute DVT and PE. She was started on heparin and is planning on a transition to Eliquis. She cannot recall any specific inciting factor for her clot. She denies any recent travel, prolonged immobility, or injuries. She does not take oral contraceptives. She is a non-smoker. Her grandmother and uncle both had venous thromboembolic events, though both were in the context of surgeries. She has been experiencing some intermittent night sweats and fatigue and had a workup earlier this year for possible connective tissue disease that was apparently negative. She denies any drenching sweats, weight loss, or palpable lymph nodes. She also denies any bleeding anywhere, abdominal pain, or changes in her bowel or bladder habits. She has had a mild headache recently. Allergies Allergy/AdvReac Type Severity Reaction Status Date / Time Cephalosporins Allergy Unknown VOMITING/RA Verified 04/18/19 18:42 SH NSAIDS (Non-Steroidal Allergy DOES NOT Verified 04/18/19 18:42 Anti-Inflamma TAKE DUE TO BLOOD DISORDER peanut Allergy Unknown Verified 04/19/19 08:48 cephalexin [From Keflex] AdvReac Severe PROJECTILE Verified 04/18/19 18:42 VOMITING codeine AdvReac Severe VOMITING/SO Verified 04/18/19 18:43 B Home Medications Home Medications Medication Instructions Recorded Confirmed Type icatibant 30 mg/3 mL subcutaneous 30 mg SQ .COMPLEX 11/28/18 04/18/19 History syringe escitalopram oxalate 10 mg tablet 10 mg PO DAILY #30 tab 02/19/19 04/18/19 Rx acetaminophen [Tylenol Extra 1,000 mg PO Q6H PRN 04/18/19 04/18/19 History Strength] minocycline 100 mg PO BID PRN 04/18/19 04/18/19 History apixaban 5 mg PO BID 30 Days #60 tab 04/19/19 Rx apixaban [Eliquis] 10 mg PO BID 7 Days #28 tab 04/19/19 Rx Patient History Medical History Depression Hereditary angioedema Surgical History H/O knee surgery History of cholecystectomy History of tonsillectomy Family History Grandfather Asthma Hereditary angioedema Mother Hereditary angioedema Sister Hereditary angioedema Uncle Hereditary angioedema Social History Preferred Language: Mauritian Communication Ability: Effective 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 Beliefs That Will Affect Care: None Current Living Situation: Spouse Feels Safe at Home: Yes Smoking Status: Unknown if ever smoked Hx Alcohol Use: No Hx Substance Use: No Review of Systems Review of Systems: All systems reviewed & are unremarkable except as noted in HPI & below Physical Exam Constitutional: + obese, healthy appearing and comfortable; no acute distress ENMT: external ear and nose normal, oropharynx normal Respiratory: normal respiratory effort, lungs clear to auscultation Cardiovascular: RRR, no murmur, no edema Gastrointestinal (Abdomen): Inspection/Auscultation: normal bowel sounds; abdomen not distended Percussion/Palpation: abdomen soft; abdomen nontender Skin: no rashes, warm and dry Psychiatric: A+Ox3, euthymic affect Lymphatic: no cervical or axillary lymphadenopathy Results & Data Vital Signs (Past 12 Hours) Vital Signs Temp Pulse Resp BP BP Pulse Ox 04/19/19 14:42 37 C 62 18 118/48 L 146/76 H 96 01/24/20 11:17 37 C 62 18 118/48 L 96 04/19/19 07:09 36.7 C 63 18 114/63 97 Laboratory Results Abnormal lab results 04/18/19 04/18/19 04/19/19 Range/Units 16:47 16:47 00:58 RBC 4.14 L (4.2-5.4) M/uL MPV 10.8 H (7.4-10.4) fL Immature Gran # (Auto) 0.04 H 0.04 H (0.00-0.02) K/uL Neut # (Auto) 6.68 H (1.4-6.5) K/uL [place] # (Auto) 0.71 H 0.80 H (0.11-0.59) K/uL APTT (21.0-31.0) Seconds D-Dimer 24346 H* (0-500) ug/L FEU Glucose (70-99) mg/dl Calcium (8.5-10.1) mg/dl Alkaline Phosphatase (45-117) U/L Albumin (3.4-5.0) gm/dl 04/19/19 04/19/19 Range/Units 00:58 00:58 RBC (4.2-5.4) M/uL MPV (7.4-10.4) fL Immature Gran # (Auto) (0.00-0.02) K/uL Neut # (Auto) (1.4-6.5) K/uL [place] # (Auto) (0.11-0.59) K/uL APTT 50.5 H* (21.0-31.0) Seconds D-Dimer (0-500) ug/L FEU Glucose 101 H (70-99) mg/dl Calcium 8.3 L (8.5-10.1) mg/dl Alkaline Phosphatase 41 L (45-117) U/L Albumin 3.1 L (3.4-5.0) gm/dl Diagnostic Findings CTA Chest, 04/18/19: IMPRESSION: 1. Extensive bilateral pulmonary emboli as above. 2. The lungs are clear. LLE Doppler, 04/18/19 IMPRESSION: There is occlusive deep venous thrombosis in the left popliteal vein extending into the calf as detailed above. CT A/P, 04/19/19: IMPRESSION: 1. No acute intra-abdominal or intrapelvic abnormality identified. 2. No bowel obstruction or bowel wall thickening. 3. Cholecystectomy. 4. Bibasilar pulmonary emboli redemonstrated.
--- NOTE | 2019-04-19 16:42 | Billing Data ---
Date of Service April 19, 2019 Coding Level of Care Code D/C Day Management >30 mins
[2019-04-26 16:12] LABS: Anti Cardiolipin Ab IgG <14 GPL; Anti Cardiolipin Ab IgM <12 MPL; Anti-Cardiolipin Ab IgA <11 APL; Anti-Thrombin III Activity 98 % activity (80-120); B2 Glycoprotein IgA <9 SAU (<=20); B2 Glycoprotein IgG <9 SGU (<=20); B2 Glycoprotein IgM <9 SMU (<=20); PTT LA Screen 32 sec (<=40); Protein S Functional(Activity) 63 % (60-140)
== END 2019-04-19 16:44 | disposition home or self-care (01) | DRG 176 ==
LOC: ED 16:18 → 2S 19:04 → SUATTDRO 19:04 → INTOOBSV 19:04 → 2S 20:27